=== PATIENT | female | born 1955 | race Caucasian/White ===

== ENCOUNTER 2021-02-14 10:43 | Outpatient (REF) | payer MEDICAID, SELFPAY ==
--- NOTE | 2021-02-16 14:23 | MHC.AU.ANO ---
Adult Audiological Evaluation Date of Visit: 02/14/21 Technology Auditor Used: Not Applicable Reason for Appointment: Audiologic re-evaluation due to increasing hearing difficulties which is impacting her daily functioning and becoming frustrating. Negra was previously tested at this office on 03/09/2019 and in the right ear found to have normal hearing thresholds at 250-1000 Hz sloping to a moderate mixed hearing loss at 4368-2949 Hz. Left ear thresholds for the left ear at 250-1500 sloping to a mild sensorineural hearing loss 7341-0005 Hz rising to normal threshold at 8000 Hz. Speech testing indicated 100% speech discrimination ability for both ears in the quiet environment with normal [id number] testing at 1 dB SNR Loss for binaural Quick SIN testing. Referral to an ENT for the asymmetric hearing loss with conductive components was recommended. Negra was evaluated by the ENT and had a CT scan; however, results were never reviewed with Negra. Records were requested from [facility] and office notes from 05/18/2019 were received, but CT scan results and report were not sent. Hearing Handicap Inventory: HHIE SCORE: 40 Based on HHIE score, patient has: Severe perceived hearing handicap Ear History: Recent Ear Drainage: 2 times blood in ear. Question if scratch since on blood thinner Bothersome Tinnitus/Ringing/Noises in Ears: Both Ears Medical History: Medical History: Head Injury, Heart Problems, High Blood Pressure, Stroke, Thyroid Disease, Vascular Problems, Chronic Pain related to Degenerative Joint Disease, Pacemaker, frequent congestion Medication List: Lisinopril, Furosemide (potentially ototoxic), Warfarin, Aspirin, Isosorbide Monomitrate, Nitrostat, Sotalol, Diltiazem, Enulose, Flovent, Proair, Wellbutrin SR, Simvastatin, Levothyroxine Sodium, Oxycodone, Omeprazole, MS Contin Otoscopy: Right Ear: Unremarkable Left Ear: Unremarkable Tympanometry: Tympanometry performed due to: To assess integrity of the middle ear system Right Ear: Normal Middle Ear System (Type A) Left Ear: Normal Middle Ear System (Type A) Hearing Evaluation: Transducer(s) Used: Insert Earphones Bone Conduction Method: Conventional Audiometry Stimuli Used: Pure Tones Right Ear: Description of Hearing: Normal hearing thresholds 250-1000 Hz sloping to a moderate mixed hearing loss at 8770-2525 Hz. Left Ear: Description of Hearing: Normal hearing levels at 250-1500 Hz and 8000 Hz with a mild sensorineural hearing loss at 0243-9804 Hz. Speech Recognition Threshold (SRT): Method Used: Monitored Live Voice Stimuli Used: Spondee Words Right Ear: 25 dB HL Left Ear: 15 dB HL Word Discrimination: Method: Recorded Lists Word Lists Used: NU-6 Right Ear: 96% at 65 dB HL Left Ear: 92% at 55 dB HL QuickSIN: Binaural Quick SIN Test: 3 dB SNR Loss suggesting Negra experiences a mild degree of difficulty understanding speech with increasing levels of background noise in this controlled test environment. Comparison: Compared to most recent evaluation: Compared to 2019 results, high frequency thresholds for both ears have decreased 5 dB with a mild decrease in [id number] understanding in the test environment. Real world listening situations will be more difficult for Negra. Recommendations: Trial with amplification is recommended. Medical clearance from a physician is required before fitting. Hearing Aid Fitting will be scheduled when all materials arrive. Audiological re-evaluation in one year. Will send a reminder card. Diagnosis: Primary Diagnosis: H90.3 Bilateral Sensorineural Hearing Loss Services Performed: Comprehensive Audiological Evaluation (CPT 91802) Tympanometry (CPT 40980) Signature: Provider: Nicol Arroyo, PATY-A
--- NOTE | 2021-02-16 14:27 | MHC.AU.MED ---
Medical Clearance for Hearing Instrumentation Date: 02/16/21 Patient Name: Negra Camp Date of : 1955 Primary Care Provider: Referring Provider: Anastacio Carrillo MD We have seen your patient on 02/14/21 and have determined that they are a candidate for amplification (See accompanying report). Specifically, they would benefit from: Hearing aid use in both ears There is a statute that addresses Medical Evaluation Requirements prior to fitting a patient with a hearing aid. According to [place] statute 265 CMR:6.03(1), (a) General. Except as provided in 265 CMR 6.03(1)(b), a health technician hearing shall not sell a hearing aid unless the prospective user has presented to the health technician hearing a written statement signed by a licensed physician that states that the patient's hearing loss has been medically evaluated and the patient may be considered a candidate for a hearing aid. The medical evaluation must have taken place within the preceding six months. Please note: Due to the [place] Statute referenced above, we cannot accept a signature other than that of a licensed physician. SMALL BOAT ENGINEER and PA signatures cannot be accepted. I am in agreement with the above recommendation. There is no medical contraindication for hearing instrumentation. Physician Signature Date Physician Name (Printed)
--- NOTE | 2021-02-16 14:28 | MHC.AU.HAS ---
Hearing Aid Evaluation Date of Visit: 02/14/21 Production Support Supervisor Used: Not Applicable Historical Information: Description of Hearing: Right ear - Normal hearing 250-1000 Hz, sloping to moderate mixed hearing loss. Left ear - Normal hearing 250-1500 and 8000 Hz with mild sensorineural hearing loss 1393-4050 Hz. Current personal amplification information, if applicable: None Summary: This hearing loss is causing significant communication difficulties, particularly when background noise is present and Negra is not facing the person speaking. Since she relies on a wheelchair, she is often not able to be in the same room when speaking with her family. Hearing Aid Prescription: Based on the individual?s shared listening needs, communication environments, dexterity, desire for connectivity, and personal preferences, the following prescription for amplification has been made: Right ear: Homicide Squad Sergeant: PhonNidmi Model: [employer]AM [employer] P 70-13T Battery Size: 13 Color: Chanpagne Web Site Manager: #1 Medium Type of Dome: Open Left ear: Homicide Squad Sergeant: Phonak Model: [employer]AM [employer] P 70-13T Battery Size: 13 Color: Chanpagne Web Site Manager: #1 Medium Type of Dome: Open Plan of Care: Patient wishes to purchase hearing aids as prescribed Action Taken/Action Needed: Medical Clearance to be requested from PCP/ENT Hearing Instrument Fitting to be scheduled when materials arrive Comments: Primary Diagnosis: H90.3 Bilateral Sensorineural Hearing Loss Signature: Provider: Nicol Arroyo, [facility]
== END 2021-02-14 10:44 | disposition home or self-care (01) ==
LOC: HO.SH 10:43
PROVIDERS: Visit Provider Internal Medicine Geriatric Medicine
DX: Z46.1 Encounter for fitting and adjustment of hearing aid (principal); H90.3 Sensorineural hearing loss, bilateral
CPT/HCPCS: 92557; 92567; 92591

== ENCOUNTER 2021-04-05 10:19 | Outpatient (REF) | payer MEDICAID, SELFPAY | END 2021-04-05 10:20 | disposition home or self-care (01) | LOC: HO.HAP 10:19 | PROVIDERS: Visit Provider Internal Medicine Geriatric Medicine | DX: Z46.1 Encounter for fitting and adjustment of hearing aid (principal); H90.3 Sensorineural hearing loss, bilateral | CPT/HCPCS: V5011; V5020; V5160; V5261; V5266 ==

== ENCOUNTER 2021-04-12 14:00 | Outpatient (REF) | payer MEDICAID, SELFPAY ==
--- NOTE | ~2021-04-12 | MM_ITS ---
EXAMINATION: BONE DENSITOMETRY CLINICAL INDICATION: Radiculopathy, lumbar region. COMPARISON: None (current study represents initial baseline exam). TECHNIQUE: Using a Zazzy DXA System (software version: 13.1) manufactured by [employer], dual-energy x-ray absorptiometry was performed of the lumbar spine and left hip. The images are of good technical quality. Summary results are attached. FINDINGS: AP SPINE L1-L4: BMD 1.317 g/cm2, Z-score 2.3, T-score 1.1, normal. LEFT FEMUR, NECK: BMD 0.871 g/cm2, Z-score 0.0, T-score -1.2, osteopenia. LEFT FEMUR, TOTAL: BMD 0.805 g/cm2, Z-score -0.7, T-score -1.6, osteopenia. IDENTIFIED RISK FACTORS: Height loss, tobacco use (current smoker), secondary osteoporosis, early menopause. HISTORY OF FRACTURE: Femur, pelvis, elbow/forearm/wrist. Other. MEDICATIONS: None listed. MM/XR DEXA axial skeleton IMPRESSION: 1. DIAGNOSIS: Osteopenia based on the lowest T-score value of -1.6 in the total femur applying World Health Organization criteria. 2. 10-YEAR FRACTURE RISK PREDICTION, FRAX: Major osteoporotic fracture (clinical spine, forearm, hip or shoulder) 13.0%. Hip fracture 1.8%. 3. Treatment Recommendations: NOF guidelines recommend consideration for treatment in postmenopausal women and men age 50 and older presenting with the following: -A hip or vertebral (clinical or morphometric) fracture. -T-score less than or equal to -2.5 at the femoral neck or spine after appropriate evaluation to exclude secondary causes. -Low bone mass at the hip or spine and a 10-year fracture probability by FRAX of greater than or equal to 3% for hip fracture or greater than or equal to 20% for major osteoporotic fracture based on the [place] adapted WHO algorithm. 4. Other Recommendations: All treatment decisions require clinical judgment and consideration of individual patient factors, including patient preferences, comorbidities, previous drug use, risk factors not captured in the FRAX model (e.g. frailty, falls, vitamin D deficiency, increased bone turnover, interval significant decline in bone density) and possible under or overestimation of fracture risk by FRAX. Additional medical evaluation for secondary cause of low bone mineral density may be appropriate. FUTURE SCAN RECOMMENDATION: People with diagnosed cases of osteoporosis or at high risk for fracture should have regular bone mineral density tests. For patients eligible for Medicare, routine testing is allowed once every 2 years. The testing frequency can be increased to one year for patients who have rapidly progressing disease, those who are receiving or discontinuing medical therapy to restore bone mass, or have additional risk factors.
--- NOTE | ~2021-04-12 | CT_ITS ---
EXAMINATION: CT LUMBAR SPINE WITHOUT CONTRAST CLINICAL INFORMATION: Radiculopathy, lumbar region. COMPARISON: CT scan of the abdomen and pelvis 11/12/2018. TECHNIQUE: A noncontrast axial CT scan of the lumbar spine was obtained. Coronal and sagittal reformatted images were generated at the acquisition workstation. This CT examination was performed using dose optimization techniques as appropriate, variously including the following: *Automated exposure control *Adjustment of mA and/or kV according to patient size (this includes techniques or standardized protocols for targeted exams where dose is matched to indication/reason for exam; i.e. extremities or head) *Use of iterative reconstruction technique DLP; 649 mGy-cm FINDINGS: The study redemonstrates a rotatory dextroscoliosis. There are mild retrolistheses of L2 on L3 and L3 on L4. There is marked narrowing of intervertebral disc height at L1-L2, L2-L3 and L3-L4 with degenerative endplate contour changes. Extensive sclerotic endplate changes are now demonstrated at L1-L2 with narrowing of the vertebral disc height at this level. Vacuum disc changes are seen at these levels as well as at L4-L5 and L5-S1. There is a 4 mm leftward subluxation of L2 on L3 and there is 4 mm rightward subluxation of L3 on L4. The study demonstrates a prominent Schmorl's node in the superior endplate of L2 toward the left. No acute fractures are demonstrated. 2 pacemaker leads are partially visualized. There are 3 screws across the right femoral neck and there is an intramedullary ang. There are cholecystectomy clips. There are small calcifications in the epigastrium, consistent with previously demonstrated peripancreatic vascular calcifications. There are heavy atheromatous calcifications of the infrarenal abdominal aorta. There are degenerative changes of the bilateral sacroiliac joints. Bone mineralization appears diffusely decreased. SPINAL LEVELS: T12-L1: The facet joints appear normal bilaterally. Disc contour is normal. There is no central stenosis or foraminal narrowing. L1-L2: The facet joints appear normal. There is a small posterior disc protrusion extending into the right neural foramen with impingement on the exiting right L1 nerve root. There is mild narrowing of the subarticular recesses. There may be mild central stenosis. L2-L3: There is mild to moderate bilateral facet arthropathy. There is a posterior disc protrusion with annular calcifications. The disc extrudes into the right neural foramen with impingement on the exiting right L2 nerve root. A small protrusion is seen on the left. There is narrowing of the bilateral subarticular recesses and there is mild central stenosis. L3-L4: There is moderate bilateral facet arthropathy. There is a prominent posterior disc protrusion with annular calcifications extending into the neural foramina bilaterally with impingement on the exiting L3 nerve roots bilaterally. There is marked narrowing of the bilateral subarticular recesses and there is moderate to severe central stenosis. L4-L5: There is moderate bilateral facet arthropathy with ligamenta flava hypertrophy. There is a broad-based posterior disc protrusion extending into the neural foramina bilaterally with severe narrowing and mass effect on the exiting L4 nerve roots bilaterally. There is marked narrowing of the bilateral subarticular recesses with impingement traversing L5 nerve roots. There is severe central stenosis. L5-S1: There is severe bilateral facet arthropathy. There is a posterior disc protrusion extending into the right greater than left neural foramina and there is impingement on the exiting right L5 nerve root. There is narrowing of the bilateral subarticular recesses. There is no central stenosis. CT/CT lumbar spine wo con IMPRESSION: 1. There is a rotatory dextroscoliosis, with lateral subluxations as described above. There are retrolistheses of L2 on L3 and L3 on L4. 2. At L4-L5 there is moderate facet arthropathy and there is a posterior disc protrusion extending into the neural foramina bilaterally. There is mass effect on the exiting L4 nerve roots and there is marked narrowing of the bilateral subarticular recesses with severe central stenosis. 3. At L3-L4 there is moderate facet arthropathy. There is a prominent posterior disc protrusion extending into the neural foramina with impingement on the exiting L3 nerve roots. There is marked narrowing of the subarticular recesses and there is moderate to severe central stenosis. 4. At L5-S1 there is severe facet arthropathy. There is a posterior disc protrusion extending into the neural foramina which is more prominent on the right with impingement on the exiting right L5 nerve root. There is narrowing of the bilateral subarticular recesses, but there is no significant central stenosis. 5. Spondylitic and facet arthropathic changes are also demonstrated at other levels as described above. 6. There is extensive peripancreatic vascular calcification, demonstrated on prior imaging.
== END 2021-04-12 14:01 | disposition home or self-care (01) ==
LOC: HO.CT 14:00
PROVIDERS: Visit Provider Internal Medicine Geriatric Medicine
DX: M54.16 Radiculopathy, lumbar region (principal); R26.9 Unspecified abnormalities of gait and mobility; R93.7 Abnormal findings on diagnostic imaging of other parts of musculoskeletal system
CPT/HCPCS: 72131; 77080

== ENCOUNTER 2022-05-04 12:37 | Outpatient (REF) | payer OTHER, SELFPAY ==
--- NOTE | ~2022-05-04 | CT_ITS ---
EXAMINATION: CT HEAD WITHOUT CONTRAST CLINICAL INFORMATION: Memory changes. COMPARISON: None TECHNIQUE: Contiguous axial imaging was performed from the skull base to vertex without intravenous administration of contrast. This CT examination was performed using dose optimization techniques as appropriate, variously including the following: *Automated exposure control *Adjustment of mA and/or kV according to patient size (this includes techniques or standardized protocols for targeted exams where dose is matched to indication/reason for exam; i.e. extremities or head) *Use of iterative reconstruction technique DLP: 808 mGy-cm FINDINGS: There is no acute intra-axial, extra-axial bleed, masses or midline shift. There is no acute infarction evolution. There is an old right mesial occipital lobe infarction with mild extra-axial dilation of right occipital horn lateral ventricle. The drake to white matter difference is maintained normal. The lateral ventricles are symmetrical but enlarged. Bone windows reveal no calvarial abnormality. There is no scalp soft tissue abnormality. Bilateral paranasal sinuses and mastoid air cells are well-aerated. CT/CT head/brain wo IV con IMPRESSION: 1. No acute intracranial process seen. 2. 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
== END 2022-05-04 12:38 | disposition home or self-care (01) ==
LOC: HO.CT 12:37
PROVIDERS: Visit Provider Registered Nurse
DX: R41.89 Other symptoms and signs involving cognitive functions and awareness (principal)
CPT/HCPCS: 70450

== ENCOUNTER 2022-07-12 09:43 | Outpatient (REF) | payer OTHER, SELFPAY ==
--- NOTE | ~2022-07-12 | XR_ITS ---
EXAMINATION: XR CHEST CLINICAL INFORMATION: Cough x5 days, rule out pneumonia. COMPARISON: None available. TECHNIQUE: Frontal view of the chest was obtained. FINDINGS: Dual lead pacemaker overlies the left chest wall with leads terminating in the right atrium and right ventricle. Cardiac and mediastinal contours are normal. Pulmonary vasculature is unremarkable. No consolidation, pneumothorax, or pleural effusion. No acute osseous abnormalities. Bones are osteopenic. Marked degenerative spondylosis in the thoracic spine. XR/XR chest 2V IMPRESSION: No acute pulmonary disease.
--- NOTE | ~2022-07-12 | US_ITS ---
EXAMINATION: US ABDOMEN COMPLETE CLINICAL INFORMATION: Abdominal pain with history of hepatitis C and pancreatic calcifications. COMPARISON: None available. TECHNIQUE: Real-time imaging of the abdominal viscera. FINDINGS: PANCREAS: There is dilatation of the pancreatic duct isn't 9 mm. Calcifications are again seen throughout the pancreas. No definite pancreatic mass is identified. ABDOMINAL AORTA: The proximal mid segments are normal in caliber. The distal aorta could not be visualized. Atherosclerotic changes are present in the aorta. INFERIOR VENA CAVA: Visualized portions are normal. LIVER: The liver is enlarged measuring at least 19 cm in cephalocaudad dimension with increased echogenicity, nodular margins and focal fatty sparing around the gallbladder. Findings are consistent with cirrhosis. No focal hepatic lesion. There is no intrahepatic biliary duct dilatation seen. GALLBLADDER: Surgically absent. COMMON BILE DUCT: Mildly dilated measuring 0.8 cm in diameter. There is a 6 x 5 x 4 mm stone seen within the common bile duct. RIGHT KIDNEY: Normal. No hydronephrosis. No renal calculi or focal parenchymal lesions. The kidney measures 10.6 cm in maximum dimension. LEFT KIDNEY: Normal. No hydronephrosis. No renal calculi or focal parenchymal lesions. The kidney measures 11.6 cm in maximum dimension. SPLEEN: Normal. The spleen measures 11.0 cm in maximum dimension. FREE FLUID: None. US/US abdomen complete IMPRESSION: 1. Choledocholithiasis with dilated common bile duct and pancreatic duct. ERCP or MRCP may be useful for further evaluation. 2. Enlarged echogenic liver with nodular margins consistent with cirrhosis. 3. Diffuse pancreatic calcification, similar to prior CT, consistent with chronic pancreatitis.
== END 2022-07-12 09:44 | disposition home or self-care (01) ==
LOC: HO.US 09:43
PROVIDERS: PCP Internal Medicine Geriatric Medicine; Visit Provider Internal Medicine Geriatric Medicine
DX: J02.0 Streptococcal pharyngitis (principal); R05.9 Cough, unspecified; R10.84 Generalized abdominal pain
CPT/HCPCS: 71046; 76700

== ENCOUNTER 2022-11-14 15:09 | Outpatient (REF) | payer OTHER, SELFPAY ==
[2022-11-14 16:07] LABS: MANUAL DIFF FLAG NO
[2022-11-14 16:45] LABS: Basophils Absolute Auto 0.1 X10*3/uL (0.0-0.2); Basophils Percent Auto 0.9 % (0-2); Eosinophils Absolute Auto 0.5 X10*3/uL (0.0-0.4); Hematocrit 37.5 % (37.0-47.0); Hemoglobin 12.1 g/dl (12.0-16.0); Imm Gran Abs Auto 0.02 X10*3/uL (0.00-0.03); Imm Gran Pct Auto 0.3 % (0.0-0.4); Lymphocytes Absolute Auto 1.3 X10*3/uL (1.2-4.9); Lymphocytes Percent Auto 22.5 % (20-40); Mean Corpuscular HGB Conc 32.3 g/dl (31.0-35.0); Mean Corpuscular Hemoglobin 30.3 pg (27.0-33.0); Mean Corpuscular Volume 93.8 fL (80.0-98.0); Mean Platelet Volume 11.2 fL (9.4-12.3); Monocytes Absolute Auto 0.5 X10*3/uL (0.1-1.2); Monocytes Percent Auto 8.3 % (2-11); Neutrophils Absolute Auto 3.4 x10*3/uL (2.0-8.3); Platelet Count 176 X10*3/uL (160-400); Red Cell Distribution Width 13.3 % (11.0-16.0); White Blood Count 5.8 X10*3/uL (4.8-10.8)
[2022-11-14 17:03] LABS: Alanine Aminotransferase 18 U/L (0-31); Albumin Level 3.7 g/dL (3.5-5.0); Alkaline Phosphatase 98 U/L (39-117); Anion Gap 15 (12-20); Aspartate Amino Transferase 21 U/L (5-31); Bilirubin Total 0.4 mg/dL (0.0-1.0); Blood Urea Nitrogen 8 mg/dL (9-16); Calcium 9.1 mg/dL (8.4-10.2); Carbon Dioxide 22 mmol/L (22-29); Chloride 103 mmol/L (96-108); Estimated Glomerular Filt Rate > 60; Glucose Random 143 mg/dL (60-115); Potassium 3.9 mmol/L (3.3-5.1); Sodium 136 mmol/L (135-145); Total Protein 7.1 g/dL (6.5-8.0)
== END 2022-11-14 15:10 | disposition home or self-care (01) ==
LOC: HO.HHCL 15:09
PROVIDERS: Visit Provider Internal Medicine Geriatric Medicine
DX: K80.50 Calculus of bile duct without cholangitis or cholecystitis without obstruction (principal); G47.00 Insomnia, unspecified
CPT/HCPCS: 36415; 80053; 85025

== ENCOUNTER 2022-11-29 13:25 | Outpatient (AMB) | payer OTHER, SELFPAY ==
--- NOTE | 2022-11-29 13:32 | MHC.OFFVIS ---
Intake Vital Signs 11/29/22 13:41 Height 5 ft 2 in Weight 168 lb BMI 30.7 BP 150/70 H Blood Pressure Location Lt brachial Position Sitting Intake Visit Reasons: skin cyst left forearm Intake Note: Patient is seen in office for evaluation and treatment of a left forearm cyst. Patient c/o: onset for a couple of months, got a new one on the right arm, increase in size, has tried to squeeze it, no pain, sore, denies discharge, redness or discoloration Chemical Process Equipment Operator Required: No Accompanied by: Self / Same As Patient Allergies amitriptyline Allergy (Unknown, Verified 11/29/22 13:33) Unknown diphenhydramine Allergy (Unknown, Verified 11/29/22 13:33) Unknown glimepiride Allergy (Unknown, Verified 11/29/22 13:33) unkn naproxen Allergy (Unknown, Verified 11/29/22 13:33) unkn sumatriptan Allergy (Unknown, Verified 11/29/22 13:33) Unknown Medication List - Last Reconciled 11/29/22 by Mario Hernandez MD bupropion HCl 150 mg PO BID cholecalciferol (vitamin D3) 50 mcg PO DAILY diltiazem HCl ER (Tiadylt ER) 180 mg PO DAILY docusate sodium 100 mg PO BID enoxaparin 120 mg subcut DAILY fluticasone propionate 110 mcg/actuation (Flovent HFA) 0 mcg inhalation furosemide 20 mg PO DAILY isosorbide mononitrate ER 30 mg PO DAILY levothyroxine 25 mcg PO QAM morphine ER 60 mg PO Q12H omeprazole 20 mg PO DAILY oxycodone 10 mg PO Q6H PRN sennosides (senna) 17.2 mg PO BEDTIME simvastatin 10 mg PO QPM sotalol 80 mg PO BID warfarin 2.5 - 5 mg PO DAILY HPI HPI Comments History of Present Illness Details 67-year-old female patient presenting with complaints of bilateral upper extremity skin lesions located on the forearm which are causing irritation. The lesions appear to be increasing in size. Lesion on the left arm is located on the lateral surface and is easily irritated while washing dishes. She denies any bleeding or discharge from the site. Lesion on the right forearm however has become red and painful. There is occasional bleeding from this lesion. She is concerned that this may be a skin cancer. She has numerous scars on her extremities from scratches from her pets. [facility] Surgical History History of cholecystectomy History of dental surgery History of fracture of femur Family History Maternal Aunt Breast cancer Family/Other Ovarian cancer Social History Alcohol intake: never Patient Tobacco Use Status: Current everyday Tobacco user Review of Systems Const All systems reviewed & are unremarkable except as noted in HPI and below Denies chills, Denies fever(s), Denies headache(s), Denies poor appetite and Denies weakness ENT Denies headache(s) Card Denies chest pain, Denies irregular heart rhythm, Denies palpitations and Denies dyspnea Resp Denies cough, Denies excessive phlegm production and Denies dyspnea GI Denies abdominal pain, Denies bloating, Denies change in bowel habits, Denies constipation, Denies heartburn, Denies diarrhea, Denies nausea and Denies vomiting Denies urinary frequency Musc Denies back pain, Denies muscle weakness and Denies numbness Skin/Breast Reports as per HPI, Denies changing lesions and Denies unusual bruising Neuro Denies headache(s), Denies numbness, Denies paresthesias and Denies weakness Psych Denies anxiety and Denies depression Endo Denies palpitations [place]/Lymph Denies lymphadenopathy Physical Exam Vital Signs: Last Vital Signs BP 150/70 H 11/29/22 13:41 BMI result Body Mass Index 30.7 Const General: cooperative and no acute distress Nutritional Appearance: well nourished Orientation/consciousness: patient oriented x3 Limitations: no limitations HEENT Head: Yes normocephalic and Yes atraumatic Ears: hearing grossly normal bilaterally Resp Effort & Inspection: normal respiratory effort, no audible wheezes, no cough and no respiratory distress Cardio Jugular venous distension: no JVD GI Inspection: Yes normal to inspection Skin Other: Warm, dry, no rash Full body images: 1. 1 cm raised crusted skin lesion suggestive of a epidermal inclusion cyst left forearm 2. Red raised lesion with a crusted surrounding surface possibly a skin neoplasm. Neuro General: patient oriented x3 Extrem Other: Lesion on left lateral forearm measures approximately 1 cm in diameter with a crusted surface and brown variegated pattern. No ulceration or bleeding is identified. Lesion is symmetric shape. Right arm with lesion on the anterior forearm but some reddish discoloration slightly raised measured approximately 0.5 cm in diameter. No pigmentation is identified. No bleeding or discharge. General: Yes no clubbing, cyanosis or edema Assessment & Plan Assessment & Plan (1) Skin lesion of left arm: Code(s): L98.9 - Disorder of the skin and subcutaneous tissue, unspecified (2) Skin lesion of right arm: Code(s): L98.9 - Disorder of the skin and subcutaneous tissue, unspecified Plan 67-year-old female patient presenting with bilateral skin lesions in the forearms which are symptomatic in warrant excision. I reviewed the procedure, risks, and alternatives in detail and she consents to excision of bilateral skin lesions of forearm. This will be scheduled as a minor surgery under local anesthesia. Coding Level of Care Code New Pt Level 4 (77292) Diagnoses Skin lesion of left arm L98.9 Skin lesion of right arm L98.9
[2022-11-29 13:41] VITALS: BP 150/70; BMI 30.7
== END 2022-11-29 14:08 | disposition home or self-care (01) ==
PROVIDERS: PCP Internal Medicine Geriatric Medicine; Visit Provider Surgery
DX: L98.9 Disorder of the skin and subcutaneous tissue, unspecified (principal)
CPT/HCPCS: 99204

== ENCOUNTER → 2022-11-29 13:25 | Outpatient (BNVA) | payer OTHER, SELFPAY | PROVIDERS: PCP Internal Medicine Geriatric Medicine; Visit Provider Surgery | DX: L98.9 Disorder of the skin and subcutaneous tissue, unspecified (principal) | CPT/HCPCS: 99202 ==

== ENCOUNTER 2023-02-13 13:37 | Outpatient (REF) | payer OTHER, SELFPAY ==
--- NOTE | ~2023-02-13 | XR_ITS ---
EXAMINATION: XR HIP, RIGHT CLINICAL INFORMATION: Chronic right hip pain COMPARISON: Right hip 07/14/2018 CT lumbar spine 04/12/2021 TECHNIQUE: Two views of the right hip. FINDINGS: Compared to the prior study, an intramedullary ang and 2 screws are present in the right femur. This was not present on the prior plain films but was present on the CT lumbar spine 04/12/2021. I suspect that this was placed for a femoral neck fracture not visible on the current study. There is chronic sclerosis and deformity of the right femoral head which may be secondary to degenerative changes or even osteonecrosis. Severe degenerative changes seen at the femoral acetabular joint with marked loss of joint space superiorly. XR/XR hip RT min 2V IMPRESSION: Intramedullary ang and 2 screws in the right femur. Chronic deformity of the right femoral head as described above. No definite acute finding.
== END 2023-02-13 13:38 | disposition home or self-care (01) ==
LOC: HO.HHCX 13:37
PROVIDERS: Visit Provider Internal Medicine Geriatric Medicine
DX: M25.551 Pain in right hip (principal); G89.29 Other chronic pain
CPT/HCPCS: 73502

== ENCOUNTER 2023-03-19 08:48 | Outpatient (REF) | payer OTHER, SELFPAY ==
--- NOTE | ~2023-03-19 | US_ITS ---
EXAMINATION: US ABDOMEN COMPLETE CLINICAL INFORMATION: Choledocholithiasis. COMPARISON: Ultrasound abdomen complete 07/12/2022. CT abdomen 11/12/2018. Limited abdominal ultrasound 10/22/2018. TECHNIQUE: Real-time imaging of the abdominal viscera. Technically difficult study secondary to body habitus and limited mobility. FINDINGS: PANCREAS: Main pancreatic duct is prominent at 4 mm. There are pancreatic parenchymal calcifications. ABDOMINAL AORTA: Atherosclerotic changes. Visualized portions are normal. INFERIOR VENA CAVA: Visualized portions are normal. LIVER: The liver exhibits nodular surface contour. There is diffuse increased liver parenchymal echogenicity, consistent with infiltrative hepatocellular disease. No focal hepatic lesion. There is no intrahepatic biliary duct dilatation seen. GALLBLADDER: Surgically absent. COMMON BILE DUCT: Dilated in caliber measuring 0.8 cm in diameter. RIGHT KIDNEY: No hydronephrosis. No renal calculi or focal parenchymal lesions. The kidney measures 9.3 cm in maximum dimension. LEFT KIDNEY: No hydronephrosis. No renal calculi or focal parenchymal lesions. The kidney measures 10.6 cm in maximum dimension. SPLEEN: The spleen measures 11.2 cm in maximum dimension. FREE FLUID: None. US/US abdomen complete IMPRESSION: Technically limited study. Hepatic cirrhosis. Stable dilatation of the common duct. Features of chronic pancreatitis.
== END 2023-03-19 08:49 | disposition home or self-care (01) ==
LOC: HO.US 08:48
PROVIDERS: PCP Internal Medicine Geriatric Medicine; Visit Provider Internal Medicine Geriatric Medicine
DX: K50.80 Crohn's disease of both small and large intestine without complications (principal); G47.00 Insomnia, unspecified
CPT/HCPCS: 76700

== ENCOUNTER 2023-10-04 14:43 | Outpatient (REF) | payer OTHER, SELFPAY ==
--- NOTE | ~2023-10-04 | CT_ITS ---
EXAMINATION: CT HEAD WITHOUT CONTRAST CLINICAL INFORMATION: Headache COMPARISON: CT scan of brain on 05/04/2022 TECHNIQUE: Contiguous axial imaging was performed from the skull base to vertex without intravenous administration of contrast. This CT examination was performed using dose optimization techniques as appropriate, variously including the following: *Automated exposure control *Adjustment of mA and/or kV according to patient size (this includes techniques or standardized protocols for targeted exams where dose is matched to indication/reason for exam; i.e. extremities or head) *Use of iterative reconstruction technique DLP: 758 mGy-cm FINDINGS: Ventricles, sulci and cisterns are dilated, especially the ventricles. Wedge-shaped cystic encephalomalacia is seen in the right occipital lobe, associated with dilatation of right occipital horn. There is no midline shift, no abnormal intra- or extra- axial fluid accumulation. Shen and white matter differentiation is normal. Bone window images show no evidence of skull fracture. CT/CT head/brain wo IV con IMPRESSION: 1. Unchanged cerebral atrophy and ventriculomegaly. 2. No intracranial hemorrhage or skull fracture is seen. 3. No evidence of space occupying lesion could be found. 4. 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 5. The current plain CT scan of the brain shows no diagnostic evidence of acute cerebral infarction.
== END 2023-10-04 14:44 | disposition home or self-care (01) ==
LOC: HO.CT 14:43
PROVIDERS: PCP Internal Medicine Geriatric Medicine; Visit Provider Internal Medicine Geriatric Medicine
DX: R41.3 Other amnesia (principal); R51.9 Headache, unspecified; W19.XXXD Unspecified fall, subsequent encounter; Z79.01 Long term (current) use of anticoagulants
CPT/HCPCS: 70450

== ENCOUNTER 2024-03-23 13:57 | Outpatient (REF) | payer OTHER, SELFPAY ==
[2024-03-23 17:34] LABS: TSH reflex Free T4 2.32 uIU/mL (0.32-4.0)
== END 2024-03-23 13:58 | disposition home or self-care (01) ==
LOC: HO.HHCL 13:57
PROVIDERS: Visit Provider Internal Medicine Geriatric Medicine
DX: L65.9 Nonscarring hair loss, unspecified (principal)
CPT/HCPCS: 36415; 84443